=== PATIENT | male | born 1960 | race Caucasian/White ===

== ENCOUNTER 2017-12-29 10:03 | Observation (INO) | payer OTHER ==
[2017-12-29] MEDS ORDERED: IBUPROFEN 600 MG TAB PO ONE ×2 (10:15→10:28)
[2017-12-29 11:18] LABS: CREATINE KINASE 159 IU/L (0-224)
[2017-12-29 11:22] LABS: PLATELET COUNT 123 10^3/uL (150-400)
[2017-12-29] MEDS ORDERED: NS 1,000 ML IV ONE (11:41)
[2017-12-29] MEDS ORDERED: oxyCODONE IR 5 MG TAB PO PRN (12:12)
[2017-12-29] MEDS ORDERED: ONDANSETRON 4 MG/2 ML VIAL IVP PRN (12:12)
[2017-12-29] MEDS ORDERED: ONDANSETRON DISINTEGRATING 4 MG TAB PO PRN (12:12)
[2017-12-29] MEDS ORDERED: PROMETHAZINE HCL 25 MG TAB PO PRN (12:12)
[2017-12-29] MEDS ORDERED: PROMETHAZINE HCL 25 MG/ML INJ IVP PRN (12:12)
--- NOTE | 2017-12-29 12:18 | EDPHY ---
H & P Smoking Status: Never smoked Time Seen by Provider: 12/29/17 10:33 HPI/ROS: CHIEF COMPLAINT: Back pain, fever, urinary frequency HISTORY OF PRESENT ILLNESS: 57-year-old male presents to the emergency department by private vehicle with back pain, fever and urinary frequency. The patient states that he went for a long bike ride 2 days ago and felt very dehydrated. He drank up to 5 L of water and then had very little urine output. He states last night however he had to get up in the middle of the night multiple times because of urinary frequency. He has also has some mild dysuria. No history of kidney stones or kidney infections. No history of urinary tract infections. He was initially seen at urgent care and was sent to the emergency department for evaluation. He has felt feverish, chilled and achy. He felt nauseous. No diarrhea. No vomiting. No chest pain or difficulty breathing. REVIEW OF SYSTEMS: Constitutional: Subjective fevers, chills Eyes: No double or blurry vision. ENT: No sore throat. Respiratory: No cough, no shortness of breath. Cardiac: No chest pain. Gastrointestinal: Nausea. No abdominal pain, vomiting or diarrhea. Genitourinary: No dysuria. Musculoskeletal: Back pain as above. No neck pain. Skin: No rashes. Neurological: No headache. (Mireya Chanel M) Past Medical/Surgical History: Negative (Cris Chanela M) Social History: Originally from [facility] (Cris Chanela M) Physical Exam: General Appearance: Alert, no distress. Initial temperature 39.1 degrees, blood pressure 153/103, nontoxic appearing. Eyes: Pupils equal and round. Extraocular motions are all intact. ENT: Mouth: Mucous membranes moist. Respiratory: No wheezing, rhonchi, or rales, lungs are clear to auscultation. Cardiovascular: Regular rate and rhythm. Gastrointestinal: Abdomen is soft and nontender, no masses, no rebound or guarding, bowel sounds normal. No CVA tenderness bilaterally although points to his left flank as his source of pain. Neurological: Alert and oriented x 3, cranial nerves II through XII grossly intact Skin: Warm and dry, no rashes. Musculoskeletal: Nontender to palpate along the cervical, thoracic or lumbar spine. Neck is supple. Extremities: Full range of motion and no peripheral edema. Psychiatric: Patient is oriented X 3, there is no agitation. (Mireya Chanel) Constitutional: Initial Vital Signs Temperature (C) 39.1 C H 12/29/17 10:22 Heart Rate 94 12/29/17 10:22 Respiratory Rate 16 12/29/17 10:22 Blood Pressure 153/103 H 12/29/17 10:22 O2 Sat (%) 92 12/29/17 10:22 O2 Delivery Mode Nasal Cannula O2 (L/minute) 2 Allergies/Adverse Reactions: Penicillins Allergy (Verified 12/29/17 14:08) Swelling/neck,face,throat Home Medications: Medication Instructions Recorded Relvar Ellipta 184/22 1 puffs IH DAILY 12/29/17 Acetaminophen [Tylenol 325mg (*)] 650 mg PO Q4HRS PRN tab 12/30/17 Aspirin EC [Aspirin EC 81 mg (*)] 81 mg PO DAILY #30 tab 12/30/17 levOFLOXACIN [Levofloxacin] 750 mg PO DAILY #8 tablet 12/30/17 metFORMIN HCL [Metformin HCl] 500 mg PO BIDAC #60 tablet 12/30/17 Medical Decision Making - Diagnostics Imaging: Discussed imaging studies w/ scallop raker Radiologist ED Course/Re-evaluation: 57-year-old male presents to the emergency department with urinary frequency, fever and some low back pain. Urinalysis reveals large amount of red blood cells and white blood cells. Urine cultures pending. White blood cell count elevated over 14,000 with a left shift. CO2 of 21. Kidney function is normal with BUN of 11 and creatinine 0.8. Venous lactate of 1.1. Patient has a known penicillin allergy that causes anaphylaxis including dysphagia. Elected not to use ceftriaxone. Patient was given 750 mg of IV Levaquin in the emergency department. Urine culture and blood cultures are pending. Patient had been given ibuprofen by the nurse in triage prior to my examination. Repeat temperature was 37.1 degrees. He is nontoxic appearing. Patient will be admitted for IV antibiotics to Dr. Aramis Wilkerson. The patient does have large blood noted in his urine. He has family history of kidney stones however he has never had a kidney stone himself. He has bilateral flank pain with no CVA tenderness bilaterally. He points to his left flank more of his source of pain compared to the right side. CT scan reveals no evidence of kidney stones. (Mireya Chanel) Differential Diagnosis: Including but not limited to urinary tract infection, pyelonephritis, rhabdomyolysis, dehydration, electrolyte abnormality, sepsis (Mireya Chanel) Other Provider: The patient was evaluated and managed by the Physician Furniture Technician. I discussed the patient's presentation and course with the midlevel provider with them and agree with the evaluation. My co-signature indicates that I have reviewed this chart and I agree with the findings and plan of care as documented. I am the secondary supervising physician. Sepsis Evaluation Note: The patient presents to the ED with potential infection identified as urinary tract infection. The patient did not have evidence of sepsis with temperature greater than 38 degree Celsius, heart rate greater than 90, and WBC greater than 12,000. Patient did not have evidence of severe sepsis, (Kayla Mfcarlane) - Data Points Laboratory Results: Laboratory Results 12/29/17 10:47 12/29/17 10:47 Medications Given: Discontinued Medications Acetaminophen (Tylenol) 650 mg PO Q4HRS PRN PRN Reason: Pain, Mild/Fever, Can Take PO Stop: 06/27/18 12:11 Last Admin: 12/30/17 09:35 Dose: 650 mg Levofloxacin/Dextrose (Levaquin 750 Mg (Premix)) 150 mls @ 100 mls/hr IV EDNOW ONE PRN Reason: Protocol Stop: 12/29/17 13:09 Last Admin: 12/29/17 11:52 Dose: 150 mls Sodium Chloride (Ns) 1,000 mls @ 0 mls/hr IV ONCE ONE PRN Reason: Wide Open Stop: 12/29/17 11:42 Last Admin: 12/29/17 11:53 Dose: 1,000 mls Sodium Chloride (Ns) 1,000 mls @ 150 mls/hr IV CONT ALEX Stop: 06/27/18 12:14 Last Admin: 12/30/17 01:01 Dose: 1,000 mls Levofloxacin/Dextrose (Levaquin 750 Mg (Premix)) 150 mls @ 100 mls/hr IV DAILY ALEX PRN Reason: Protocol Stop: 01/29/18 08:59 Last Admin: 12/30/17 09:35 Dose: 150 mls Ibuprofen (Motrin) 600 mg PO EDNOW ONE Stop: 12/29/17 10:16 Last Admin: 12/29/17 11:04 Dose: 600 mg Miscellaneous Medication (Relvar Ellipta 184/22) 1 puffs IH DAILY ALEX Stop: 06/28/18 08:59 Last Admin: 12/30/17 09:30 Dose: Not Given Departure - Departure Disposition: [facility] Inpatient Acute Clinical Impression: Acute pyelonephritis Condition: Good
[2017-12-29] MEDS: ACETAMINOPHEN 325 MG TAB PO PRN ×2 (15:15→20:01)
--- NOTE | 2017-12-29 15:18 | ASMTCMCOM ---
CM Note CM Note Notes: Chart reviewed for dc planning purposes. Normally independent 57 year old male admitted with flank pain via ED. NO current needs identified CM to follow. Plan: TBD Date Signed: 12/29/2017 03:17 PM Electronically Signed By:Zoie Reeder RN
--- NOTE | 2017-12-29 16:49 | PDGENHP ---
History and Physical - Chief Complaint Acute flank pain - History of Present Illness Primary care provider: None HPI: 57-year-old male presenting with acute flank pain located in the bilateral flanks characterized as sharp, with associated urinary frequency and oliguria with onset of symptoms 2 days prior and duration persistent thereafter. The pain has been somewhat alleviated by antibiotics and IV fluids received in the emergency department. The patient reports that he has been consuming an adequate amount of solids and liquids over this interval, to avoid getting dehydrated. He otherwise denies any fevers chills night sweats, chest pain, and he reports that his bowel movements have been regular. He denies ever experiencing similar symptoms. History Information - Allergies/Home Medication List Allergies/Adverse Reactions: Penicillins Allergy (Verified 12/29/17 14:08) Swelling/neck,face,throat Home Medications: Relvar Ellipta 184/ 1 puffs IH DAILY 12/29/17 [Last Taken 12/28/17] I have personally reviewed and updated: family history, medical history, social history, surgical history - Past Medical History no pertinent PMH Additional medical history: Last PSA checked 1 year ago - Surgical History Reports: no pertinent surgical hx - Family History Additional family history: Father with kidney stones and prostate cancer - Social History Smoking Status: Never smoked Alcohol Use: Occasionally Drug Use: None Additional social history: Originally from [facility], became a permanent resident locally in April of 2017, not particularly physically active but he did engage in a very strenuous bike ride 2 days ago prior to his onset of symptoms Review of Systems Review of Systems: ROS: 10pt was reviewed & negative except for what was stated in HPI & below Gastrointestinal: Reports: abdominal pain (Flanks) Genitourinary: Reports: frequency, other (Oliguria) Physical Exam Physical Exam: Temp Pulse Resp BP Pulse Ox 37.6 C 88 18 146/86 H 90 L 12/29/17 16:05 12/29/17 16:05 12/29/17 16:05 12/29/17 16:05 12/29/17 16:05 O2 (L/minute) 2 Constitutional: no apparent distress, appears nourished, not in pain Eyes: PERRL, anicteric sclera, EOMI Ears, Nose, Mouth, Throat: moist mucous membranes, hearing normal, ears appear normal, no oral mucosal ulcers Cardiovascular: regular rate and rhythym, no murmur, rub, or gallop, No edema Respiratory: no respiratory distress, no rales or rhonchi, clear to auscultation Gastrointestinal: normoactive bowel sounds, soft, non-tender abdomen, no palpable masses Genitourinary: no bladder fullness, no bladder tenderness, other (No CVA tenderness) Neurologic: AAOx3, sensation intact bilaterally, No weakness Psychiatric: interacting appropriately, not anxious, not encephalopathic, thought process linear Lab Data & Imaging Review 12/29/17 10:47 12/29/17 10:47 WBC 14.32 10^3/uL (3.80-9.50) H 12/29/17 10:47 RBC 5.49 10^6/uL (4.40-6.38) 12/29/17 10:47 Hgb 14.6 g/dL (13.7-17.5) 12/29/17 10:47 Hct 44.3 % (40.0-51.0) 12/29/17 10:47 MCV 80.7 fL (81.5-99.8) L 12/29/17 10:47 MCH 26.6 pg (27.9-34.1) L 12/29/17 10:47 MCHC 33.0 g/dL (32.4-36.7) 12/29/17 10:47 RDW 14.5 % (11.5-15.2) 12/29/17 10:47 Plt Count 123 10^3/uL (150-400) L 12/29/17 10:47 MPV 12.2 fL (8.7-11.7) H 12/29/17 10:47 Neut % (Auto) 80.4 % (39.3-74.2) H 12/29/17 10:47 Lymph % (Auto) 9.4 % (15.0-45.0) L 12/29/17 10:47 [place] % (Auto) 9.1 % (4.5-13.0) 12/29/17 10:47 Eos % (Auto) 0.1 % (0.6-7.6) L 12/29/17 10:47 Baso % (Auto) 0.2 % (0.3-1.7) L 12/29/17 10:47 Nucleat RBC Rel Count 0.0 % (0.0-0.2) 12/29/17 10:47 Absolute Neuts (auto) 11.53 10^3/uL (1.70-6.50) H 12/29/17 10:47 Absolute Lymphs (auto) 1.34 10^3/uL (1.00-3.00) 12/29/17 10:47 Absolute Monos (auto) 1.30 10^3/uL (0.30-0.80) H 12/29/17 10:47 Absolute Eos (auto) 0.01 10^3/uL (0.03-0.40) L 12/29/17 10:47 Absolute Basos (auto) 0.03 10^3/uL (0.02-0.10) 12/29/17 10:47 Absolute Nucleated RBC 0.00 10^3/uL (0-0.01) 12/29/17 10:47 Immature Gran % 0.8 % (0.0-1.1) 12/29/17 10:47 Immature Gran # 0.11 10^3/uL (0.00-0.10) H 12/29/17 10:47 VBG Lactic Acid 1.1 mmol/L (0.7-2.1) 12/29/17 12:10 Sodium 136 mEq/L (135-145) 12/29/17 10:47 Potassium 4.1 mEq/L (3.3-5.0) 12/29/17 10:47 Chloride 103 mEq/L (97-110) 12/29/17 10:47 Carbon Dioxide 21 mEq/l (22-31) L 12/29/17 10:47 Anion Gap 12 mEq/L (8-16) 12/29/17 10:47 BUN 11 mg/dL (7-23) 12/29/17 10:47 Creatinine 0.8 mg/dL (0.7-1.3) 12/29/17 10:47 Estimated GFR > 60 12/29/17 10:47 Glucose 233 mg/dL (70-100) H 12/29/17 10:47 Hemoglobin A1c 8.5 % (4.0-6.0) H 12/29/17 14:58 Estim Average Glucose 197 mg/dL (68-126) H 12/29/17 14:58 Calcium 8.5 mg/dL (8.5-10.4) 12/29/17 10:47 Creatine Kinase 159 IU/L (0-224) 12/29/17 10:47 Urine Color YELLOW 12/29/17 10:47 Urine Appearance HAZY 12/29/17 10:47 Urine pH 5.0 (5.0-7.5) 12/29/17 10:47 Ur Specific [place] 1.027 (1.002-1.030) 12/29/17 10:47 Urine Protein 1+ (NEGATIVE) H 12/29/17 10:47 Urine Ketones 1+ (NEGATIVE) H 12/29/17 10:47 Urine Blood 3+ (NEGATIVE) H 12/29/17 10:47 Urine Nitrate NEGATIVE (NEGATIVE) 12/29/17 10:47 Urine Bilirubin NEGATIVE (NEGATIVE) 12/29/17 10:47 Urine Urobilinogen 2.0 EU (0.2-1.0) H 12/29/17 10:47 Ur Leukocyte Esterase 2+ (NEGATIVE) H 12/29/17 10:47 Urine RBC 50-182 /hpf (0-3) H 12/29/17 10:47 Urine WBC 50-182 /hpf (0-3) H 12/29/17 10:47 Ur Epithelial Cells TRACE /lpf (NONE-1+) 12/29/17 10:47 Urine Bacteria 1+ /hpf (NONE SEEN) H 12/29/17 10:47 Urine Mucus 2+ /lpf (NONE-1+) H 12/29/17 10:47 Urine Glucose 3+ (NEGATIVE) H 12/29/17 10:47 Visualized and Interpreted imaging results: Yes Interpretation: CT of the abdomen demonstrating no hydronephrosis, no kidney stones Assessment & Plan Assessment: 57-year-old male presents with acute complicated urinary tract infection Plan: 1. Complicated urinary tract infection. Acute, new problem this provider, further workup indicated. Evidenced by urinary tract infection in a male, without any preceding urologic procedure, potentially precipitated by prolonged biking, no evidence of kidney stones on CT of the abdomen -monitor white blood cell count, monitor fever curve -status post IV levofloxacin, continue -continue IV fluids -monitor for resolution of symptoms and follow up with a new primary care provider -will most likely require 10 days of antibiotics 2. Health maintenance. Patient's last PSA screening 1 year ago, previously no BPH symptoms -check LDL, check hemoglobin A1c, age-appropriate screening -arrange with primary care provider, recommend outpatient colonoscopy 2. Thrombocytopenia. Acute, potentially secondary to infection, continue monitor Diet. Regular Prophylaxis. Low risk patient, SCDs Code. Full Disposition. Anticipated discharge is 12/30, pending clinical resolution of above. Discussed with Ester Ordoñez, hospitalist provider, she has signed out the patient to me for evaluation.
[2017-12-29] MEDS: NS 1,000 ML IV SCH (20:15)
[2017-12-30] MEDS: ACETAMINOPHEN 325 MG TAB PO PRN ×2 (00:59→09:35)
[2017-12-30] MEDS: NS 1,000 ML IV SCH (01:01)
[2017-12-30 05:03] LABS: PLATELET COUNT 96 10^3/uL (150-400)
[2017-12-30] MEDS ORDERED: [UNRECOGNIZED DRUG - OTHER] IH SCH (09:00)
[2017-12-30 09:53] VITALS: BP 159/104
--- NOTE | 2017-12-30 11:13 | ASMTLACE ---
LACE Length of stay for Answers: Less than 1 day current admission Acuity / Level of Answers: No Care: Did the patient have an inpatient admission? # of Emergency department Answers: 1-2 visits in the last 6 months Score: 1 Date Signed: 12/30/2017 11:12 AM Electronically Signed By:Deanna Carranza LCSW
--- NOTE | 2017-12-30 15:28 | PDDCSUM ---
Discharge Summary Discharge Summary: DISCHARGE SUMMARY FOLLOW-UP ITEMS: 1. Diabetic teaching and education 2. Follow-up urine culture sensitivity results DATE OF ADMISSION: 12/29/2017 DATE OF DISCHARGE: 12/30/2017 DISCHARGE DIAGNOSES: 1. Acute pyelonephritis 2. Acute complicated urinary tract infection 3. New diagnosis of diabetes mellitus type 2 with hyperglycemia CONSULTATIONS: None PROCEDURES / IMAGING: CT of the abdomen demonstrating no hydronephrosis, no kidney stone CHIEF COMPLAINT: Acute flank pain, fever, myalgias, general malaise SUBJECTIVE: Patient is feeling well at time of discharge, his fevers have completely abated today, no flank pain PHYSICAL EXAM ON DISCHARGE: Systolic blood pressure 130-150, heart rate 90, less fever 38 degrees at midnight, no CVA tenderness, lungs are clear to auscultation bilaterally, abdomen is soft nontender nondistended, no lower extremity edema LABS ON DISCHARGE: Hemoglobin A1c 8.5%, LDL 51, HDL 28, creatinine 0.7, potassium 3.9, white blood count 13844, hemoglobin 13.5, urine culture E coli, blood culture pending at time discharge HOSPITAL COURSE BY PROBLEM: The patient presented with acute pyelonephritis as evidenced by bilateral CVA tenderness, positive urinalysis, E coli in the urine culture, urinary symptoms. This is by definition a complicated urinary tract infection in a male. His situation was stabilized with IV levofloxacin and IV fluids. His organism is E coli, with sensitivities pending at time of discharge. Given that the patient requires extended course of antibiotics, will provide him with levofloxacin, 10 total days, and outpatient follow-up with a new PCP. Symptomatically the patient was feeling substantially improved and he is currently stable for discharge. The patient also had some routine health maintenance performed given that he does not have a PCP, and he was found to have a new diagnosis of diabetes mellitus type 2 with hyperglycemia and hemoglobin A1c of 8.5%. I counseled the patient regarding this diagnosis, he is amenable to initiating metformin 500 mg twice daily as well as aspirin 81 mg daily, and scheduling follow-up with an outpatient PCP. His blood pressure is also currently not at goal, and this will be further addressed in the outpatient setting if he does in fact have sustained hypertension on repeat blood pressure check. His LDL is currently at goal, his HDL is below goal, and he does require now patient screening colonoscopy. DISCHARGE MEDICATIONS: Please see official discharge medication reconciliation sheet in chart , metformin 500 mg twice daily, levofloxacin 750 mg daily for 8 subsequent days, aspirin 81 mg daily. DISCHARGE INSTRUCTIONS: Please schedule outpatient follow-up with primary care provider, contact information provided.
== END 2017-12-30 11:41 | disposition home or self-care (01) ==
LOC: F1N 13:03
PROVIDERS: ADMIT Internal Medicine; ATTEND Internal Medicine
DX: N10 Acute pyelonephritis (principal); N39.0 Urinary tract infection, site not specified; E11.65 Type 2 diabetes mellitus with hyperglycemia; D69.6 Thrombocytopenia, unspecified; B96.20 Unspecified Escherichia coli [E. coli] as the cause of diseases classified elsewhere; Z16.11 Resistance to penicillins; Z80.42 Family history of malignant neoplasm of prostate; Z84.1 Family history of disorders of kidney and ureter; Z88.0 Allergy status to penicillin
CPT/HCPCS: 74176; 96365; 99285; G0378; J1956

== ENCOUNTER → 2018-12-21 | Outpatient (CLI) | payer OTHER | LOC: FIMAGING 17:58 | PROVIDERS: ATTEND Family Medicine | DX: J45.40 Moderate persistent asthma, uncomplicated (principal); R05 Cough; R50.9 Fever, unspecified ==